=== PATIENT | female | born 1965 | race Caucasian/White ===

== ENCOUNTER 2017-04-05 14:04 | Emergency (ER) | payer SELFPAY ==
--- NOTE | ~2017-04-05 | ER ---
PATIENT'S NAME: MP GONZALEZ [facility] AGE: 51 Y [address] ROOM: [place] [address] LOCATION: [facility] ADMIT DATE: 04/05/2017 ER/Outpatient Report DISCHARGE DATE: 04/05/2017 FAMILY PHYSICIAN: PHYSICIAN, NO ATTENDING PHYSICIAN: Peewee Brian TIME SEEN: 1415 hours. CHIEF COMPLAINT: Right-sided low back pain. HISTORY OF PRESENT ILLNESS: The patient is a 51-year-old female, said morning she woke with low back pain, worse on the right. She said the pain does radiate down her thigh. She denied any numbness or tingling to her extremities. No loss of control of bowel or bladder. The patient has no previous history of back injuries or surgeries, however, she does state she had history of ovarian cancer 20 years ago, which was removed by complete hysterectomy. The patient denied any radiation or chemo following the surgery. ALLERGIES: NONE. HOME MEDICATIONS: She has been using ibuprofen for pain. MEDICAL HISTORY: No chronic diseases. SURGERIES: Cholecystectomy, hysterectomy, and shoulder surgery. SOCIAL HISTORY: Smoker, less than a pack a day. Denies alcohol use. Works at a local [employer]. FAMILY HISTORY: Positive for cancer. REVIEW OF SYSTEMS: GENERAL: No fevers or chills. HEAD AND EENT: No recent headache or sore throat. RESPIRATORY: Denies any shortness of breath or cough. CARDIOVASCULAR: No chest pain. PATIENT'S NAME: MP GONZALEZ [facility] AGE: 51 Y [address] ROOM: [place] [address] LOCATION: [facility] ADMIT DATE: 04/05/2017 ER/Outpatient Report DISCHARGE DATE: 04/05/2017 FAMILY PHYSICIAN: PHYSICIAN, NO ATTENDING PHYSICIAN: Peewee Brian GASTROINTESTINAL: No weight loss. No change in bowel habits. GENITOURINARY: No incontinence. No dysuria. MUSCULOSKELETAL: Right-sided low back pain, is usually worse with movement. No history of injury. NEURO: Denies any numbness or tingling to her extremities. OBJECTIVE FINDINGS: VITAL SIGNS: Blood pressure is 136/80, temperature is 97.4, O2 saturation is 96%, pulse 90, respirations 14, and her weight was 71 kilos. GENERAL APPEARANCE: She appears fit, alert, has a nice jones. HEAD AND EENT: Teeth appeared in somewhat poor condition. Oral membranes were moist. LUNGS: Sounded clear. HEART: Rhythm appeared regular. ABDOMEN: Soft, nontender. BACK: She had some tenderness over the right SI joint. No significant central lumbar tenderness. NEUROLOGIC: She was sensitive to light touch in both lower extremities. Reflexes appeared equal and symmetrical. Strength appeared normal. ASSESSMENT: Acute right-sided low back pain, possible sciatica versus sacroiliac joint pain. PLAN: Toradol 60 mg IM given for acute pain. She is given a back handout and recommended the use of ice or heat. Flexeril was prescribed 10 mg 1 t.i.d. for 5 days. Naprosyn 500 one b.i.d. See her family doctor at first of the week if the pain continues. ERIKA CRUZ FOR MD PRABHAKAR CHENEY/danial /[id number] d: 04/05/172025 t: 04/13/17 1233, OUTPATIENT REPORT
== END 2017-04-05 14:53 | disposition disaster alternative care site (69) ==
LOC: GMED 14:04
DX: M54.5 Low back pain (principal); F17.210 Nicotine dependence, cigarettes, uncomplicated; Z90.710 Acquired absence of both cervix and uterus; Z98.890 Other specified postprocedural states
CPT/HCPCS: J1885